=== PATIENT | female | born 1965 | race Caucasian/White ===

== ENCOUNTER 2025-01-16 12:49 | Outpatient (CLI) | payer OTHER ==
--- NOTE | 2025-01-16 15:29 | RADIOLOGY REPORT ---
CLINICAL HISTORY: PAIN IN RIGHT KNEE,PRPH TEAR OF MEDIAL MENISCUS COMPARISON: None TECHNIQUE: Multisequence multiplanar MRI images of the right knee were obtained without contrast. FINDINGS: Cruciate ligaments: ACL and PCL are intact. Extensor mechanism: Quadriceps mechanism and patellar tendon are intact. Collateral ligaments: There is a sprain of the MCL with edema along its superficial and deep fibers. There is intrasubstance signal in the anterior fibers of the MCL near its femoral attachment, possible partial tear. Lateral meniscus is intact. Menisci: Horizontal flap tear involving the posterior horn/ body junction of the medial meniscus with flap component of the tear extending into the adjacent inferior gutter, partially interposed between the MCL and the medial tibial plateau. Lateral meniscus is intact. Cartilage: Moderate chondral fissuring in the central trochlea with mild adjacent subchondral cystic change. Moderate to severe chondral thinning in the medial and lateral compartments, slightly greater in the medial compartment. Bones: No acute fracture or focal marrow contusion. Joint fluid: No significant joint effusion. No synovitis or loose bodies. Other: No other significant findings. IMPRESSION: 1. Horizontal flap tear of the medial meniscus. 2. Sprain of the MCL with suspected partial tear involving the anterior fibers near the femoral attachment. 3. Tricompartmental chondromalacia as described above.
== END 2025-01-16 23:59 | disposition home or self-care (01) ==
LOC: MRI02 12:49
PROVIDERS: ATTEND Family Medicine Sports Medicine
DX: S83.411A Sprain of medial collateral ligament of right knee, initial encounter (principal); S83.221A Peripheral tear of medial meniscus, current injury, right knee, initial encounter; M25.561 Pain in right knee; S83.241A Other tear of medial meniscus, current injury, right knee, initial encounter; X58.XXXA Exposure to other specified factors, initial encounter; Y93.89 Activity, other specified; Y92.89 Other specified places as the place of occurrence of the external cause; M94.261 Chondromalacia, right knee; Y99.8 Other external cause status
CPT/HCPCS: 73721

== ENCOUNTER 2025-04-17 12:24 | Outpatient (CLI) | payer OTHER ==
--- NOTE | 2025-04-17 17:05 | RADIOLOGY REPORT ---
CLINICAL INDICATION: PAIN IN LEFT KNEE TECHNIQUE: Multiplanar, multisequence MRI of the left knee was performed without contrast. Contrast: None. COMPARISON: None. FINDINGS: Joint space and synovium: There is no joint effusion, popliteal cyst or synovial thickening. Bones and articular cartilage: There is no evidence of acute fracture or bone marrow edema. The alignment is normal. Punctate chondral defect is noted in the patellar apex. Punctate focus of subchondral marrow edema is noted in the medial femoral condyle without an overlying full-thickness articular cartilage defect. Lateral compartment articular cartilage is intact. Menisci: There is an undersurface tear of the posterior horn of the medial meniscus. The lateral meniscus is intact. Tendons and ligaments: The tendons in the posterior knee are intact. The extensor mechanism is intact. The anterior cruciate ligament is thickened and hyperintense at its femoral attachment. The posterior cruciate ligament is intact. The medial collateral ligament and the lateral collateral ligament stabilizing complex are intact. Muscles: Regional muscles are preserved in bulk and signal characteristics. Other: None. IMPRESSION: 1. Undersurface tear of the posterior horn of the medial meniscus of the left knee. 2. Punctate chondral defect in the patellar apex. 3. Punctate focus of subchondral marrow edema in the medial femoral condyle without an overlying full-thickness articular cartilage defect. 4. ACL sprain.
== END 2025-04-17 23:59 | disposition home or self-care (01) ==
LOC: MRI02 12:24
PROVIDERS: ATTEND Family Medicine Sports Medicine
DX: S83.242A Other tear of medial meniscus, current injury, left knee, initial encounter (principal); S83.512A Sprain of anterior cruciate ligament of left knee, initial encounter; M25.562 Pain in left knee; M17.12 Unilateral primary osteoarthritis, left knee; M77.9 Enthesopathy, unspecified; R60.0 Localized edema; X58.XXXA Exposure to other specified factors, initial encounter; Y93.89 Activity, other specified; Y92.89 Other specified places as the place of occurrence of the external cause; Y99.8 Other external cause status
CPT/HCPCS: 73721